=== PATIENT | male | born 1970 | race African-American/Black ===

== ENCOUNTER 2018-09-26 16:38 | Emergency (ER) | payer OTHER ==
[~2018-09-26] VITALS: Ht 182.9 cm; Wt 70.3 kg
[2018-09-26] MEDS ORDERED: NKM (16:39)
[2018-09-26 16:45] VITALS: BP 122/79
--- NOTE | 2018-09-26 16:45 | NUR ---
ED Nurse Note: Brought in to ER by ambulance d/t abdominal pain 10/10 N/V. pt aao x4 and ambulatory with assist due to weakness. skin clean and intact but dry. calm and cooperative and fatigue. no N/V since arrival.
[2018-09-26] MEDS ORDERED: Isovue-300 100ml vial INJ PRN (17:00)
[2018-09-26] MEDS ORDERED: Morphine Sulfate 4mg/ml Inj (IV USE ONLY) IVP ONE (17:00)
--- NOTE | 2018-09-26 17:02 | Emergency Room Report ---
History of Present Illness General Chief Complaint: Abdominal Pain Source: EMS Present Illness HPI 47 old male presents to the emergency department complaining of 10 out of 10 severity localized periumbilical abdominal pain 4 weeks status post gastric ulcer repair surgery. Patient also reports subjective fevers and chills with nausea and vomiting. Patient denies constipation or diarrhea he states he is able to have normal bowel movements and pass gas. Denies blood in the Stool or black tarry stools. Pt. denies blood in the vomit. reports vomiting approx. 8x since last night. denies recent travel or ill contacts with persons who have similar symptoms. Allergies: Coded Allergies: IBUPROFEN (Verified Allergy, Unknown, 09/26/18) Patient History Past Medical History: see triage record Past Surgical History: none Pertinent Family History: none Reviewed Nursing Documentation: PMH: Agreed; PSxH: Agreed Nursing Documentation-PMH Past Medical History: No Stated History Review of Systems All Other Systems: negative except mentioned in HPI Physical Exam Vital Signs Date Time Temp Pulse Resp B/P (MAP) Pulse Ox O2 Delivery O2 Flow Rate FiO2 09/26/18 16:34 97.9 65 17 122/79 (93) 97 Room Air Sp02 EP Interpretation: reviewed, normal General Appearance: no apparent distress, alert, GCS 15, non-toxic Head: normocephalic, atraumatic Eyes: bilateral eye normal inspection, bilateral eye PERRL ENT: hearing grossly normal, normal voice Neck: full range of motion Respiratory: chest non-tender, lungs clear, normal breath sounds, speaking full sentences Cardiovascular #1: regular rate, rhythm Gastrointestinal: normal bowel sounds, soft, no peritonitis, non-distended, no guarding, tenderness - Epigastric and periumbilical ttp. Rectal: deferred Genitourinary: normal inspection, no CVA tenderness Musculoskeletal: back normal, gait/station normal, normal range of motion, non- tender Neurologic: alert, oriented x3, responsive, motor strength/tone normal, sensory intact, speech normal, grossly normal Psychiatric: judgement/insight normal Medical Decision Making PA Attestation Dr. Squires is my supervising Physician whom patient management has been discussed with. Diagnostic Impression: Primary Impression: Gastritis and duodenitis ER Course 47 old male presents to the emergency department complaining of 10 out of 10 severity localized periumbilical abdominal pain 4 weeks status post gastric ulcer repair surgery. Patient also reports subjective fevers and chills with nausea and vomiting. Patient denies constipation or diarrhea he states he is able to have normal bowel movements and pass gas. Denies blood in the Stool or black tarry stools. Pt. denies blood in the vomit. reports vomiting approx. 8x since last night. denies recent travel or ill contacts with persons who have similar symptoms. Ddx considered but are not limited to Diverticulitis, acute appendicitis, diarrhea,UC, PUD, GE, pancreatitis, gallstone Vital signs: are WNL, pt. is afebrile H&PE are most consistent with ORDERS -CBC: mild anemia no evidence of significant acute blood loss -CMP: NA: 134 - pt. given NS -lipase: WNL -UA: unremarkable- most c/w contamination ED INTERVENTIONS: -- 1000NS, -Morphine 2mg IV - Pepcid PO -Mylanta PO -lidocaine PO -I do not identify an emergent condition at this time. With current presentation , pt. is stable for close outpatient follow up and conservative treatment. D/ w pt. to return promptly to ED with worsening or new symptoms.- Pt. verbalizes' understanding and agreement with proposed treatment plan.proposed treatment plan. DISCHARGE: At this time pt. is stable for d/c to home. Will provide printed patient care instructions, and any necessary prescriptions. Care plan and follow up instructions have been discussed with the patient prior to discharge. Labs Test 09/26/18 16:05 09/26/18 17:15 09/26/18 18:15 White Blood Count 8.5 K/UL (4.8-10.8) Red Blood Count 4.09 M/UL (4.70-6.10) Hemoglobin 10.6 G/DL (14.2-18.0) Hematocrit 35.0 % (42.0-52.0) Mean Corpuscular Volume 86 FL (80-99) Mean Corpuscular Hemoglobin 25.8 PG (27.0-31.0) Mean Corpuscular Hemoglobin Concent 30.2 G/DL (32.0-36.0) Red Cell Distribution Width 15.0 % (11.6-14.8) Platelet Count 454 K/UL (150-450) Mean Platelet Volume 4.5 FL (6.5-10.1) Neutrophils (%) (Auto) 73.3 % (45.0-75.0) Lymphocytes (%) (Auto) 18.5 % (20.0-45.0) Monocytes (%) (Auto) 4.6 % (1.0-10.0) Eosinophils (%) (Auto) 2.3 % (0.0-3.0) Basophils (%) (Auto) 1.3 % (0.0-2.0) Sodium Level 134 MMOL/L (136-145) Potassium Level 4.6 MMOL/L (3.5-5.1) Chloride Level 102 MMOL/L (98-107) Carbon Dioxide Level 25 MMOL/L (21-32) Anion Gap 7 mmol/L (5-15) Blood Urea Nitrogen 6 mg/dL (7-18) Creatinine 0.8 MG/DL (0.55-1.30) Estimat Glomerular Filtration Rate > 60 mL/min (>60) Glucose Level 110 MG/DL (74-106) Calcium Level 9.4 MG/DL (8.5-10.1) Total Bilirubin 0.4 MG/DL (0.2-1.0) Aspartate Amino Transf (AST/SGOT) 18 U/L (15-37) Alanine Aminotransferase (ALT/SGPT) 8 U/L (12-78) Alkaline Phosphatase 93 U/L (46-116) Total Protein 7.3 G/DL (6.4-8.2) Albumin 2.9 G/DL (3.4-5.0) Globulin 4.4 g/dL Albumin/Globulin Ratio 0.7 (1.0-2.7) Lipase 81 U/L (73-393) Lactic Acid Level 1.00 mmol/L (0.4-2.0) Urine Color Yellow Urine Appearance Clear Urine pH 7 (4.5-8.0) Urine Specific [place] 1.010 (1.005-1.035) Urine Protein Negative (NEGATIVE) Urine Glucose (UA) Negative (NEGATIVE) Urine Ketones Negative (NEGATIVE) Urine Blood Negative (NEGATIVE) Urine Nitrite Negative (NEGATIVE) Urine Bilirubin Negative (NEGATIVE) Urine Urobilinogen 1 MG/DL (0.0-1.0) Urine Leukocyte Esterase 1+ (NEGATIVE) Urine RBC 0-2 /HPF (0 - 0) Urine WBC 0-2 /HPF (0 - 0) Urine Squamous Epithelial Cells None /LPF (NONE/OCC) Urine Amorphous Sediment Moderate /LPF (NONE) Urine Bacteria Few /HPF (NONE) Chest X-Ray Diagnostic Results Chest X-Ray Diagnostic Results : Chest X-Ray Ordered: Yes # of Views/Limited/Complete: 1 View Indication: Other - r/o free air under diaphragm EP Interpretation: Yes PA Xray: Interpretation reviewed, by supervising MD, and agrees with findings. Interpretation: no consolidation, no effusion, no pneumothorax, no acute cardiopulmonary disease, other - no free air under the diaphragm Impression: No acute disease Electronically Signed by: Colleen Rome PA-C CT/MRI/US Diagnostic Results CT/MRI/US Diagnostic Results : Imaging Test Ordered: CT Abdomen and PElvis W. Contrast Impression " Enhancement and wall thickening of stomach and duodenum consistent with gastritis/duodenitis. Suggestion of some of perigastric inflammation with confluent fluid attenuation of the perigastric fat. Could be postsurgical type changes, no free air to suggest recurrent perforated ulcer. No short bowel obstruction or abscess. ASVD. Normal appendix." Per official radiology report - Please see report for specific details. Last Vital Signs Date Time Temp Pulse Resp B/P (MAP) Pulse Ox O2 Delivery O2 Flow Rate FiO2 09/26/18 16:45 97.9 87 17 122/79 97 Room Air Status: improved Disposition: HOME, SELF-CARE Condition: Stable Patient Instructions: Duodenitis, Gastritis, Adult Additional Instructions: Take medications as directed. Follow up with a Primary Care Provider in 3-5 days, even if your symptoms have resolved. --Please review list of primary care clinics, if you do not already have a primary care provider Return sooner to ED if new symptoms occur, or current symptoms become worse. - Please note that this Emergency Department Report was dictated using [employer] engineer technology software, occasionally this can lead to erroneous entry secondary to interpretation by the dictation equipment. Colleen Rome Sep 26, 2018 17:02
[2018-09-26 17:39] LABS: BASOPHILS % (AUTO) 1.3 % (0.0-2.0); EOSINOPHILS % (AUTO) 2.3 % (0.0-3.0); HEMOGLOBIN 10.6 G/DL (14.2-18.0); LYMPHOCYTES % (AUTO) 18.5 % (20.0-45.0); MEAN CORPUSCULAR VOLUME 86 FL (80-99); MONOCYTES % (AUTO) 4.6 % (1.0-10.0); NEUTROPHILS % (AUTO) 73.3 % (45.0-75.0); PLATELET COUNT 454 K/UL (150-450); RED BLOOD COUNT 4.09 M/UL (4.70-6.10); WHITE BLOOD COUNT 8.5 K/UL (4.8-10.8)
[2018-09-26 17:44] LABS: ANION GAP 7 mmol/L (5-15); BLOOD UREA NITROGEN 6 mg/dL (7-18); CALCIUM 9.4 MG/DL (8.5-10.1); CARBON DIOXIDE 25 MMOL/L (21-32); CHLORIDE 102 MMOL/L (98-107); CREATININE 0.8 MG/DL (0.55-1.30); POTASSIUM 4.6 MMOL/L (3.5-5.1); SODIUM 134 MMOL/L (136-145)
[2018-09-26 17:51] LABS: ALANINE AMINOTRANSFERASE 8 U/L (12-78); ALBUMIN 2.9 G/DL (3.4-5.0); ALBUMIN/GLOBULIN RATIO 0.7 (1.0-2.7); ALKALINE PHOSPHATASE 93 U/L (46-116); ASPARTATE AMINO TRANSFERASE 18 U/L (15-37); BILIRUBIN,TOTAL 0.4 MG/DL (0.2-1.0)
[2018-09-26] MEDS ORDERED: Mylanta II UD 30ml ORAL ONE (18:15)
[2018-09-26] MEDS ORDERED: Lidocaine 2% Visc 15ml soln ORAL ONE (18:15)
[2018-09-26 18:23] LABS: APPEARANCE,URINE CLEAR; BILIRUBIN, URINE NEGATIVE (NEGATIVE); GLUCOSE, URINE (UA) NEGATIVE (NEGATIVE); KETONES,URINE NEGATIVE (NEGATIVE); LEUKOCYTE ESTERASE ,URINE 1+ (NEGATIVE); NITRITE,URINE NEGATIVE (NEGATIVE); PH,URINE 7 (4.5-8.0); PROTEIN,URINE NEGATIVE (NEGATIVE); UROBILINOGEN,URINE 1 MG/DL (0.0-1.0)
[2018-09-26 18:31] LABS: COLOR,URINE YELLOW
[2018-09-26 19:45] VITALS: BP 115/75
--- NOTE | 2018-09-26 19:45 | NUR ---
ED Nurse Note: pt cleared to be d/c per ER provider, pt discharge and aftercare instruction provided w/ prescription, pt education done via discussion and handout, pt advised to follow up with pcp or return to ed if changes in condition, vss, ambulatory w/ steady gait, left w/ all belongings, iv d/c and id band removed, pt states he will take ramya home.
[2018-09-26] MEDS ORDERED: ONDANSETRON ODT4 MG BC (19:52)
[2018-09-26] MEDS ORDERED: OMEPRAZOLE20 M2 ORAL (19:52)
[2018-09-26] MEDS ORDERED: ZANTAC150 MG ORAL (19:52)
--- NOTE | 2018-09-27 10:01 | Diagnostic Imaging Report ---
Indication: Shortness of breath Technique: One view of the chest Comparison: none Findings: Lungs and pleural spaces are clear. Heart size is normal Impression: No acute process
--- NOTE | 2018-09-27 14:51 | Diagnostic Imaging Report ---
Clinical Indication: Periumbilical abdominal pain for week status post gastric ulcer repair surgery Technique: Patient given oral contrast. IV administration nonionic contrast. Venous phase spiral acquisition obtained through the abdomen and pelvis. Multiplanar reconstructions were generated. Total dose length product 503.37 mGycm. CTDIvol(s) 9.1 mGy. Dose reduction achieved using automated exposure control Comparison: none Findings: There is mild generalized edema of the subcutaneous and mesenteric fat. There is prominence and enhancement of the gastric mucosa and suggestion of edema of the gastric wall. Edema of the perigastric fat is probably related to prior surgery as well as to the more generalized edema. The third and fourth portion of the duodenum are somewhat ectatic, could indicate deep pre of nutcracker phenomenon. There is questionably compression of the duodenum as it crosses the midline. However, contrast has entered the more distal small bowel, although has not traversed the entirety. No small bowel distention. The appendix is normal. Moderate stool is seen throughout the colon. No free or loculated intraperitoneal gas or fluid is evident. The liver demonstrates some focal fatty change in the usual location adjacent to the falciform ligament. It is otherwise unremarkable. The gallbladder, bile ducts, pancreas, spleen, adrenals, kidneys are unremarkable. No renal or ureteral calculi, hydronephrosis, or hydroureter. No pelvic mass or adenopathy. No retroperitoneal or mesenteric mass or adenopathy. The included lung bases are clear. The bones are unremarkable. Impression: Wall thickening of the stomach and duodenum, likely gastritis/duodenitis, and/or peptic ulcer disease Generalized mild edema of the subcutaneous and mesenteric fat. Perigastric edema may related to recent surgery No evidence of surgical complication This essentially agrees with the preliminary interpretation provided overnight by Dr. Davis The CT scanner at [facility] is accredited by the [employer] and the scans are performed using protocols designed to limit radiation exposure to as low as reasonably achievable to attain images of sufficient resolution adequate for diagnostic evaluation.
== END 2018-09-26 19:45 | disposition home or self-care (01) ==
LOC: EDBD 16:38 → EMR 17:42
DX: K29.70 Gastritis, unspecified, without bleeding (principal); K29.80 Duodenitis without bleeding; R11.2 Nausea with vomiting, unspecified; Z88.6 Allergy status to analgesic agent; D64.9 Anemia, unspecified
CPT/HCPCS: 36415; 71045; 74177; 80053; 81003; 83605; 83690; 85025; 96361; 96374; 96375; 99284; J2270; J2405; Q9967